=== PATIENT | male | born 1990 | race Caucasian/White ===

== ENCOUNTER 2023-08-17 14:53 | Outpatient (AMB) | payer OTHER, SELFPAY ==
--- NOTE | 2023-08-17 14:56 | A.OFFPC_ITS ---
Vital Signs 08/17/23 15:04 Height 6 ft 4 in Weight 329 lb BMI 40.0 BP 120/66 Blood Pressure Location Rt brachial Position Sitting Respiration 12 Pulse 86 Pulse Source Pulse Oximeter Pulse Oximetry (%) 99 Oxygen Delivery Method Room Air Intake Visit Reasons: New patient-req physical Intake Note: Patient is here to establish care. Patient is accompanied by his sister, Tiff, who is his health care proxy. Tiff lives in the [facility] and she is requesting a physical for todays appointment. Patient reports he becomes anxious when overthinking. Paleologist Required: No Accompanied by: Sister Allergies No Known Allergies Allergy (Verified 08/17/23 15:11) Tobacco use date assessed: 08/17/23 Dental Screening Dental Screen Date: 08/17/23 Did you have a dental visit in the last 12 months?: Yes Did you have a dental problem in the last 6 months where you did not have access to dental care?: No Was dental information given to patient?: Patient has dentist HPI New patient-req physical HPI Details New patient Prior PCP:? [facility] Last office visit/CPE: 2020 Acute issue(s): CPE PMHx: Autism spectrum SurgHx: [place] teeth FHx: Mom: Early onset dementia, ALZ, Hyperparathyroidism. Dad unknown. SocHx: [facility]. Nonsmoker. EtOH none. No drugs. PFSH Medical History (Updated 08/17/23 @ 15:55 by Christiano Collins) Hand dermatitis Autism Surgical History (Updated 08/17/23 @ 15:22 by Maria Esther Lewis CMA) No pertinent past surgical history Family History (Updated 08/17/23 @ 15:22 by Maria Esther Lewis CMA) Mother Dementia Idiopathic parathyroidism Social History (Updated 08/17/23 @ 15:14 by Maria Esther Lewis CMA) Household Members: None Housing: Condominium Are you a primary special needs caregiver to a significant other at home: No Do you presently have visiting nurse or other home services: No 75 years or older and lives alone: No Alcohol intake: never Patient Tobacco Use Status: Never used Tobacco e-Cigarette/Vaping Use: Never Used service: No Current occupational status: employed Current occupation: [employer] Current occupational exposures/hazards: No Cognitive needs: No Hearing needs: No Vision needs: Yes (wears glasses) Questionnaire PHQ-9 Over the last 2 weeks, how often have you been bothered by any of the following problems? 1. Little interest or pleasure in doing things: not at all 2. Feeling down, depressed, or hopeless: not at all 3. Trouble falling or staying asleep, or sleeping too much: not at all 4. Feeling tired or having little energy: not at all 5. Poor appetite or overeating: not at all 6. Feeling bad about yourself - or that you are a failure or have let yourself or your family down: not at all 7. Trouble concentrating on things, such as reading the newspaper or watching television: not at all 8. Moving or speaking so slowly that other people could have noticed. Or the opposite - being so fidgety or restless that you have been moving around a lot more than usual: not at all 9. Thoughts that you would be better off or of hurting yourself in some way: not at all Total score: 0 Depression Screening Interpretation: Negative Depression Screening Done: Yes 47368 - PHQ-9 Billing: Yes Source: Developed by Drs. Bereket Pena, Swathi Gaitan, Jace Chaudhari and colleagues, with an educational noris from [employer]. Thrive Questionnaire Date Thrive assessed: 08/17/23 I am a: Patient What is your living situation today?: I have a steady place to live Within the past 12 months, did the food you bought not last and you didn't have the money to get more?: Never true Within the past 12 months, did you worry whether your food would run out before you got money to buy more?: Never true Do you have trouble paying for medicines?: No Do you have trouble getting transportation to medical appointments?: No Do you have trouble paying your heating and electricity bill?: No Do you have trouble taking care of your child, family member or friend?: No Do you have trouble with day-to-day activities such as bathing, preparing meals, shopping, managing finances, etc.?: No Are you currently unemployed and looking for a job?: No Are you interested in more education?: No Please select the resources that you would like help with: None Currently or been in a relationship where the following occur: no concerns reported THRIVE Score: 0 AUDIT C Alcohol Use Questionnaire (AUDIT-C) 1. How often do you have a drink containing alcohol?: Never 3. How often do you have six or more drinks on one occasion?: Never Total Score: 0 MEAGHAN-7 AMB Questionnaire MEAGHAN-7 Date MEAGHAN - 7 assessed: 08/17/23 Feeling nervous, anxious, or on edge: 1 = Several days Not being able to stop or control worryin = Not at all Worrying too much about different things: 0 = Not at all Trouble relaxin = Not at all Being so restless that it is hard to sit still: 0 = Not at all Becoming easily annoyed or irritable: 0 = Not at all Feeling afraid as if something awful might happen: 1 = Several days Total MEAGHAN-7 score (0-4 normal; 5-9 mild; 10-14 moderate; 15-21 severe): 2 Source: Developed by Drs. Bereket Pena, Swathi Gaitan, Jace Chaudhari and colleagues, with an educational noris from [employer]. MEAGHAN-7 Assessment Billing MEAGHAN-7 Assessment Tool: MEAGHAN-7 Assessment 64322 Review of Systems Const Denies chills, Denies fatigue, Denies fever(s), Denies headache(s) and Denies weakness Eyes Denies change in vision ENT Denies dizziness, Denies headache(s), Denies hearing loss, Denies nasal congestion, Denies sinus pain, Denies sinus pressure and Denies sore throat Card Denies chest pain, Denies lightheadedness, Denies dyspnea and Denies other (palpitations) Resp Denies cough, Denies dyspnea and Denies wheezing GI Denies abdominal pain, Denies melena, Denies hematochezia, Denies change in bowel habits, Denies dyspepsia and Denies nausea Denies hematuria and Denies dysuria Musc Denies abnormal gait, Denies myalgias, Denies arthralgias, Denies numbness and Denies tingling Skin/Breast Denies rash, Denies unusual bruising and Denies wounds Neuro Denies abnormal gait, Denies dizziness, Denies headache(s), Denies memory loss, Denies numbness, Denies Sensory deficit (Neuro), Denies tingling and Denies weakness Psych Denies anxiety, Denies depression and Denies memory loss Endo Denies cold intolerance, Denies fatigue, Denies heat intolerance, Denies polydipsia and Denies polyuria Florentin/Lymph Denies easy bleeding and Denies easy bruising Aller/Immun Denies wheezing Physical exam (Primary Care) Vital Signs: Last Vital Signs Pulse 86 08/17/23 15:04 Resp 12 08/17/23 15:04 BP 120/66 08/17/23 15:04 Pulse Ox 99 08/17/23 15:04 Oxygen Delivery Method Room Air 08/17/23 15:04 BMI result Body Mass Index 40.0 Tobacco/Smoking Status: Tobacco use Status Tobacco use date assessed 08/17/23 08/17/23 15:15 Patient Tobacco Use Status Never used Tobacco 08/17/23 15:15 e-Cigarette/Vaping Use Never Used 08/17/23 15:15 PHQ-9: PHQ-9 Score PHQ-9: Total score 0 08/17/23 15:44 Depression Screening Interpretation: Negative Thrive Assessment: Date of Thrive Assessment Date Thrive assessed 08/17/23 08/17/23 15:17 Currently or been in a relationship where the following occur: no concerns reported Const General: no acute distress, well developed, alert and awake Nutritional Appearance: well nourished Orientation/consciousness: patient oriented x3 HENMT Head: Yes normocephalic and Yes atraumatic Ears: hearing grossly normal bilaterally and TM's normal bilaterally General nose exam: Normal external nose present and Normal nares present Mouth: Normal oral and palatal mucosa present and moist mucous membranes Teeth and gingiva: dentition normal Throat: Yes posterior oropharynx normal Eyes General: appearance normal, both eyes and all related structures Pupils: Equal, round and reactive pupils present and Pupil accommodation reflex normal EOM: EOMs intact bilaterally Neck Neck: Yes normal visual inspection, Yes no lymphadenopathy and Yes trachea midline Thyroid: Thyroid normal Carotids: no bruits Lymphatic: no lymphadenopathy noted Chest Chest palpation & inspection: normal inspection of the chest Resp Effort & Inspection: normal respiratory effort Auscultation: clear to auscultation bilaterally Cardio Rate: regular rate Rhythm: regular rhythm Heart sounds: S1 normal heart sound present, S2 normal heart sound present, no gallops, no murmurs and no rubs Bruits: no abdominal aortic bruits and no carotid bruits GI Palpation (GI): No Abdominal aortic bruit present, Soft to palpation, nontender, No hepatosplenomegaly present and No Rebound tenderness present Auscultation: normal bowel sounds General: Yes no CVA tenderness Back/Spine/Pelvis Back: no CVA tenderness Cervical Spine: cervical ROM normal and No Cervical spine tenderness Thoracic/Lumbar Spine: thoraco-lumbar ROM normal, No pain with thoraco-lumbar ROM, No thoracic spinal tenderness and No lumbar spinal tenderness Skin Lesions: no lesions Rashes: no rashes Trauma: no lacerations or abrasions Wounds: no wounds Nails: normal Neuro General: patient oriented x3 Cranial nerves: Yes Equal, round and reactive pupils present Cognition (Neuro): normal cognition Gait exam (Neuro): Normal gait present Motor exam (neuro): 5/5 motor strength present throughout Sensory Exam: No Sensory deficit (Neuro) Deep tendon reflexes (DTR's): Right patellar reflex intensity grade: 2+ and Left patellar reflex intensity grade: 2+ Extrem General: Yes normal to inspection and No edema Psych Appearance: grossly normal Affect: normal affect Attitude: cooperative Thought process: Normal thought process present Assessment and Plan Assessment & Plan (1) Autism: Code(s): F84.0 - Autistic disorder Plan: Stable (2) Adult general medical exam: Code(s): Z00.00 - Encounter for general adult medical examination without abnormal findings Plan: 33-year-old?male?presents?as?new?patient?for?an?extended?exam. Autism?spectrum?and?obesity?but?otherwise?normal?exam. Check?labs?and?we?will?follow-up?on?these?by?telemedicine?in?a?few?weeks. Orders: Orders Lipid Panel Today Z00.00 - Encounter for general adult medical examination without abnormal findings Microalbumin, Random (w Creat) Today I10 - Essential (primary) hypertension CT NG by PCR Today Z11.3 - Encounter for screening for infections with a predominantly sexual mode of transmission Syphilis Screen Today Z11.3 - Encounter for screening for infections with a predominantly sexual mode of transmission Comprehensive [place]. Panel Fast Today Z00.00 - Encounter for general adult medical examination without abnormal findings Complete Blood Count Auto Diff Today Z00.00 - Encounter for general adult medical examination without abnormal findings TSH reflex Free T4 Today Z00.00 - Encounter for general adult medical examination without abnormal findings UA and rflx microscopic Today Z00.00 - Encounter for general adult medical examination without abnormal findings Vitamin B12 and Folate Today E53.8 - Deficiency of other specified B group vitamins Vitamin D 25-OH Total Today E55.9 - Vitamin D deficiency, unspecified HIV Ab/Ag Today Z11.3 - Encounter for screening for infections with a predo minantly sexual mode of transmission Hepatitis B,C Profile Today Z11.3 - Encounter for screening for infections with a predominantly sexual mode of transmission Coding Level of Care Code New Pt Level 4 (65522) Diagnoses Autism F84.0 Adult general medical exam Z00.00 Additional Codes MEAGHAN-7 Assessment Billing - MEAGHAN-7 Assessment Tool: MEAGHAN-7 Assessment 73715 ([id number])
[2023-08-17 15:04] VITALS: BP 120/66; PULSE 86; RESP 12; O2SAT 99; BMI 40.0
== END 2023-08-17 16:09 | disposition home or self-care (01) ==
PROVIDERS: PCP Family Medicine; Visit Provider Family Medicine
DX: Z00.00 Encounter for general adult medical examination without abnormal findings (principal); F84.0 Autistic disorder
CPT/HCPCS: 99385

== ENCOUNTER 2023-08-21 09:03 | Outpatient (REF) | payer OTHER, SELFPAY ==
[2023-08-21 10:19] LABS: Appearance Urine Clear; Color Urine Yellow; Glucose Urine UA Negative (Negative); Leukocyte Esterase Urine Negative (Negative); Nitrite Urine Negative (Negative); PH 7.5 (5.0-9.0); Specific Gravity - Urine <= 1.005 (1.005-1.025); Urine Blood Negative (Negative); Urine Ketones Negative (Negative); Urine Protein Negative (Neg-Trace)
[2023-08-21 10:28] LABS: MANUAL DIFF FLAG NO
[2023-08-21 10:35] LABS: Basophils Percent Auto 0.7 % (0-2); Eosinophils Absolute Auto 0.1 X10*3/uL (0.0-0.4); Eosinophils Percent Auto 2.6 % (0-4); Hematocrit 44.6 % (42.0-52.0); Hemoglobin 15.1 g/dl (14.0-18.0); Imm Gran Abs Auto 0.08 X10*3/uL (0.00-0.03); Imm Gran Pct Auto 1.5 % (0.0-0.4); Lymphocytes Absolute Auto 1.7 X10*3/uL (1.2-4.9); Lymphocytes Percent Auto 31.3 % (20-40); Mean Corpuscular HGB Conc 33.9 g/dl (31.0-36.0); Mean Corpuscular Hemoglobin 29.8 pg (27.0-33.0); Mean Corpuscular Volume 88.1 fL (80.0-98.0); Mean Platelet Volume 11.8 fL (9.4-12.4); Monocytes Absolute Auto 0.4 X10*3/uL (0.1-1.2); Monocytes Percent Auto 7.5 % (2-11); Neutrophils Absolute Auto 3.1 x10*3/uL (2.0-8.3); Neutrophils Percent Auto 56.4 % (45-73); Platelet Count 182 X10*3/uL (160-400); Red Blood Count 5.06 X10*6/uL (4.60-5.80); White Blood Count 5.4 X10*3/uL (4.8-10.8)
[2023-08-21 11:07] LABS: Creatinine Urine 21.76 mg/dL; Microalbumin Urine < 5.0 mg/L
[2023-08-21 11:10] LABS: Alanine Aminotransferase 62 U/L (0-40); Albumin Level 4.4 g/dL (3.5-5.0); Alkaline Phosphatase 60 U/L (39-117); Anion Gap 10 (12-20); Aspartate Amino Transferase 44 U/L (5-37); Bilirubin Total 2.1 mg/dL (0.0-1.0); Blood Urea Nitrogen 11 mg/dL (9-16); Calcium 9.4 mg/dL (8.4-10.2); Carbon Dioxide 28 mmol/L (22-29); Chloride 103 mmol/L (96-108); Cholesterol 174 mg/dL (<200); Estimated Glomerular Filt Rate > 60; Glucose Fasting 87 mg/dL (60-99); HDL Cholesterol 30 mg/dL (>40); LDL Cholesterol Calculated 87 mg/dL (<100); Sodium 137 mmol/L (135-145); Total Protein 7.1 g/dL (6.5-8.0); Triglycerides 286 mg/dL (<150)
[2023-08-21 11:11] LABS: TSH reflex Free T4 1.28 uIU/mL (0.32-4.0); Vitamin D 25-OH Total 23.1 ng/mL (>30)
[2023-08-21 11:27] LABS: HBS Num1 2.51 mIU/mL (0-7.99); HBc Num1 0.07 S/CO (0.00-0.79); HBsAGNum1 0.39 S/CO (0.00-0.99); HIV AB/AG Nonreactive (Nonreactive); HIV Num 1 0.06 S/CO (0.00-0.99); Hepatitis B Core Antibody Nonreactive (Nonreactive); Hepatitis B Surface Antigen Negative (Negative); ~HepC Num1 0.15 S/CO (0.00-0.79); ~Hepatitis B Surface Antibody NONREACTIVE (Nonreactive); ~Hepatitis C Antibody Nonreactive (Nonreactive)
[2023-08-21 11:29] LABS: Syphilis Screen Nonreactive (Nonreactive)
[2023-08-21 11:41] LABS: Folate 6.8 ng/mL (> or = 4.0); Vitamin B12 351 pg/mL (200-900)
== END 2023-08-21 09:04 | disposition home or self-care (01) ==
LOC: HO.HMGCLDS 09:03
PROVIDERS: PCP Family Medicine; Visit Provider Family Medicine
DX: Z00.00 Encounter for general adult medical examination without abnormal findings (principal); Z11.3 Encounter for screening for infections with a predominantly sexual mode of transmission; Z11.4 Encounter for screening for human immunodeficiency virus [HIV]; I10 Essential (primary) hypertension; E53.8 Deficiency of other specified B group vitamins; E55.9 Vitamin D deficiency, unspecified
CPT/HCPCS: 36415; 80053; 80061; 81003; 82043; 82306; 82570; 82607; 82746; 84443; 85025; 86704; 86706; 86780; 86803; 87340; 87389

== ENCOUNTER → 2023-10-30 14:38 | Outpatient (AMB) | payer OTHER, SELFPAY ==
--- NOTE | 2023-10-30 14:27 | A.OFFPC_ITS ---
Intake Visit Reasons: f/u labs Intake Note: Patient is scheduled for follow up on labs today. I spoke with patient's sister, Tiff, who is on release of information form for patient, as he is autistic. Allergies No Known Allergies Allergy (Verified 10/30/23 14:28) Tobacco use date assessed: 10/30/23 Dental Screening Dental Screen Date: 08/17/23 Did you have a dental visit in the last 12 months?: Yes Did you have a dental problem in the last 6 months where you did not have access to dental care?: No Was dental information given to patient?: Patient has dentist HPI f/u labs HPI Details 33 y/o male presents to f/u labs via tel emedicine. Labs were drawn 08/21/23. Reviewed labs with pt. Triglycerides 286. TC 174. LDL 87. HDL low at 30. Vitamin D low at 23.1. Elevated liver enzymes - AST 44 / ALT 62. HPI Comments History of Present Illness Details Documentation assistance for Shai Recinos MD, was provided by Christiano Collins,? Complex Care Nurse Practitioner on 10/30/2023 at 3:06 PM EST. I, Dr. Recinos, have read, observed, and verified documentation. [facility] Medical History (Updated 10/30/23 @ 15:05 by Christiano Collins) Hand dermatitis Autism Surgical History (Updated 08/17/23 @ 15:22 by Maria Esther Lewis CMA) No pertinent past surgical history Family History (Updated 08/17/23 @ 15:22 by Maria Esther Lewis CMA) Mother Dementia Idiopathic parathyroidism Social History (Updated 08/17/23 @ 15:14 by Maria Esther Lewis CMA) Household Members: None Housing: Condominium Are you a primary palliative care physician to a significant other at home: No Do you presently have visiting nurse or other home services: No 75 years or older and lives alone: No Alcohol intake: never Patient Tobacco Use Status: Never used Tobacco e-Cigarette/Vaping Use: Never Used service: No Current occupational status: employed Current occupation: [employer] Current occupational exposures/hazards: No Cognitive needs: No Hearing needs: No Vision needs: Yes (wears glasses) Questionnaire Thrive Questionnaire Date Thrive assessed: 08/17/23 MEAGHAN-7 AMB Questionnaire MEAGHAN-7 Date MEAGHAN - 7 assessed: 08/17/23 Source: Developed by Drs. Bereket Pena, Swathi Gaitan, Jace Chaudhari and colleagues, with an educational noris from [employer]. Review of Systems Const Denies chills, Denies fatigue, Denies fever(s), Denies headache(s) and Denies weakness ENT Denies dizziness and Denies headache(s) Card Denies dyspnea Resp Denies cough, Denies dyspnea, Denies wheezing and Denies other (shortness of breath) Musc Denies numbness and Denies tingling Neuro Denies dizziness, Denies headache(s), Denies numbness, Denies tingling and Denies weakness Psych Denies anxiety and Denies depression Endo Denies fatigue Aller/Immun Denies wheezing Physical exam (Primary Care) Tobacco/Smoking Status: Tobacco use Status Tobacco use date assessed 10/30/23 10/30/23 14:30 Patient Tobacco Use Status Never used Tobacco 10/30/23 14:30 e-Cigarette/Vaping Use Never Used 10/30/23 14:30 Thrive Assessment: Date of Thrive Assessment Date Thrive assessed 08/17/23 10/30/23 14:30 Telehealth Telehealth Telehealth Platform: Telephone Location of provider rendering services: practice address Location of patient: address on file Patient Identification confirmed using: Name, : Yes Telehealth method: voice only Patient verbally consented to treatment: Yes Patient verbally consented to billing insurance company: Yes Patient informed of any privacy concerns related to visit: Yes Minutes spent on Phone/Video with Pt.: 14 Assessment and Plan Assessment & Plan (1) Elevated liver enzymes: Code(s): R74.8 - Abnormal levels of other serum enzymes Plan: Mildly?elevated?liver?enzymes?and?patient?is?obese.??Likely?fatty?liver?disorder . Encouraged?weight?loss?and?good?hydration Will?recheck?in?a?couple?of?months.??If?still?the ?same?or?higher,?will?check?an?ultrasound Also?mildly?elevated?bilirubin?level.??If?this?rises?would?check?liver?ultrasoun d?as?well (2) Hypertriglyceridemia: Code(s): E78.1 - Pure hyperglyceridemia Plan: Encouraged?weight?loss?and?diet?low?in?saturated?fats?and?cholesterol (3) Low vitamin D level: Code(s): R79.89 - Other specified abnormal findings of blood chemistry Plan: His?sister?will?get?him?a?vitamin-D?supplement We?can?recheck?this?at?his?next?visit Orders: Orders Vitamin D 25-OH Total Today E55.9 - Vitamin D deficiency, unspecified Lipid Panel Today E78.1 - Pure hyperglyceridemia, Z00.00 - Encounter for general adult medical examination without abnormal findings Comprehensive [place]. Panel Fast Today R74.8 - Abnormal levels of other serum enzymes, Z00.00 - Encounter for general adult medical examination without abnormal findings Coding Level of Care Code Tele Est Pt Level 2 (88190) Diagnoses Elevated liver enzymes R74.8 Hypertriglyceridemia E78.1 Low vitamin D level R79.89
== END ==
PROVIDERS: PCP Family Medicine; Visit Provider Family Medicine
DX: R74.8 Abnormal levels of other serum enzymes (principal); E78.1 Pure hyperglyceridemia; R79.89 Other specified abnormal findings of blood chemistry
CPT/HCPCS: 99212

== ENCOUNTER 2023-12-21 12:46 | Outpatient (AMB) | payer OTHER, SELFPAY ==
[2023-12-21 12:50] VITALS: BP 130/72; PULSE 74; TEMP 36.7; O2SAT 98; BMI 40.0
--- NOTE | 2023-12-21 12:50 | AM.OFFWIN_ITS ---
Intake Vital Signs 12/21/23 12:50 Height 6 ft 4 in Weight 329 lb BMI 40.0 BP 130/72 Blood Pressure Location Lt brachial Position Sitting Pulse 74 Pulse Source Pulse Oximeter Temp 98.0 F Temp Source Temporal Artery Scan Pulse Oximetry (%) 98 Oxygen Delivery Method Room Air Intake Visit Reasons: EP lower abdomen pain down rt leg 1 wk Intake Note: pt is here for lower abd pain down right leg for 1 week Patient Tobacco Use Status: Never used Tobacco Allergies No Known Allergies Allergy (Verified 12/21/23 12:51) Do you need a note to return to daycare/school/sports/work: Yes HPI EP lower abdomen pain down rt leg 1 wk HPI Details This note is constructed using voice recognition software. While every effort has been made to ensure accuracy, order processing clerk errors may have been included. The patient is a 33 year old mentally challenged male who presents with his sister who is both his parachutist/combatant diver qualified and his healthcare proxy to the clinic today with 1 week history of right testicle pain intermittent in nature after twisting his testicle in his hands. He notes he was a bit more aggressive in his twisting and squeezing motion when he developed discomfort . He notes the area only hurts when he touches it, and improves if he takes a shower or rests and leaves the area alone. He notes when the area feels more tender he develops mild nausea feelings and pain into his abdomen. He describes the pain to be more tender in nature. He denies being sexually active ever. No discharge from the penis. No lesions. He has had no changes in bowel or bladder function. [facility] Medical History (Updated 10/30/23 @ 15:05 by Christiano Collins) Hand dermatitis Autism Surgical History (Updated 08/17/23 @ 15:22 by Maria Esther Lewis CMA) No pertinent past surgical history Family History (Updated 08/17/23 @ 15:22 by Maria Esther Lewis CMA) Mother Dementia Idiopathic parathyroidism Social History (Updated 08/17/23 @ 15:14 by Maria Esther Lewis CMA) Household Members: None Housing: Condominium Are you a primary home care rn to a significant other at home: No Do you presently have visiting nurse or other home services: No 75 years or older and lives alone: No Alcohol intake: never Patient Tobacco Use Status: Never used Tobacco e-Cigarette/Vaping Use: Never Used service: No Current occupational status: employed Current occupation: [employer] Current occupational exposures/hazards: No Cognitive needs: No Hearing needs: No Vision needs: Yes (wears glasses) Review of Systems Const All systems reviewed & are unremarkable except as noted in HPI and below Physical Exam Vital Signs: Last Vital Signs Temp 98.0 F 12/21/23 12:50 Pulse 74 12/21/23 12:50 BP 130/72 12/21/23 12:50 Pulse Ox 98 12/21/23 12:50 Oxygen Delivery Method Room Air 12/21/23 12:50 BMI result Body Mass Index 40.0 Const General: cooperative, healthy appearing, comfortable, no acute distress and alert Orientation/consciousness: patient oriented x3 Limitations: no limitations GI Inspection: Yes normal to inspection Palpation (GI): Soft to palpation and nontender Percussion: Yes normal to percussion Auscultation: normal bowel sounds General: Yes no CVA tenderness Male General Exam: Yes normal external exam, No ecchymosis, No edema, No erythema, No hernia, No inguinal lymphadenopathy, No lacerations and No Genital lesions present Penis: normal penis and No Genital lesions present Meatus: meatus normal Scrotum: scrotum normal (Normal cremasteric reflex), testes descended bilaterally, no hydroceles, no masses and no scrotal swelling Back/Spine/Pelvis Back: no CVA tenderness Skin General skin exam: no rashes or lesions noted, elasticity normal and turgor normal Neuro General: patient oriented x3 Psych Appearance: grossly normal Mental Status: mental status grossly normal Speech and movement: Normal speech and movement present Affect: normal affect Assessment & Plan Assessment & Plan (1) Scrotum pain: Code(s): N50.82 - Scrotal pain Plan: Secondary to self manipulation. Given intermittent low-level nature of this pain, discussed and deferred ultrasound. Advised use of NSAIDs, ice, and avoidance of the area. May return to previous activity once area has resolved. Advised ER with sudden acute worsening of pain. Plan See above for full details and plan. Coding Level of Care Code Est Pt Level 3 (24400) Diagnoses Scrotum pain N50.82
== END 2023-12-21 14:24 | disposition home or self-care (01) ==
PROVIDERS: PCP Family Medicine; Visit Provider Registered Nurse
DX: N50.82 Scrotal pain (principal)
CPT/HCPCS: 99213

== ENCOUNTER 2024-01-28 11:30 | Outpatient (AMB) | payer OTHER, SELFPAY ==
--- NOTE | 2024-01-28 11:33 | MHC.PC.OV ---
Vital Signs 01/28/24 11:37 Height 6 ft 4 in Weight 324 lb 2 oz BMI 39.4 BP 118/74 Blood Pressure Location Rt brachial Position Sitting Respiration 15 Pulse 80 Pulse Source Pulse Oximeter Temp 99.8 F Temp Source Oral Pulse Oximetry (%) 96 Oxygen Delivery Method Room Air Intake Visit Reasons: persistent fever Intake Note: patient has had a fever over 5 days and coughing. patient tested negative for covid last thursday. Allergies No Known Allergies Allergy (Verified 01/28/24 11:36) Tobacco use date assessed: 10/30/23 Dental Screening Dental Screen Date: 08/17/23 HPI HPI Comments History of Present Illness Details This is a 33 year old male with a pmhx of autism, elevated LFTs and hypertriglyceridemia presenting for a sick visit. He is accompanied by his sister, Lopez. They were visiting relatives in [place]. They were round sick toddlers. Upon returning he developed symptoms 5 days ago. Endorses fevers. Temp max 101 2 days ago. Temp is 99.8 degrees today on DayQuil. He is coughing up yellow/green mucus. He has sinus pressure with postnasal drip. Feels fatigued. Appetite is little decreased. He is drinking fluids. Taking NyQuil , but it is not much help with the cough. Endorses mild sore throat. Tested negative for COVID-19 at home twice on Thursday. No history of respiratory disease aside from childhood asthma. ROS: Constitutional: No shaking chills or night sweats. See HPI. Eyes: No eye pain, eye redness, eye discharge. ENT: No hearing loss or ear pain, see HPI Respiratory: No shortness of breath, hemoptysis or wheezing.. Cardiovascular: No chest pain Gastrointestinal: No anorexia, nausea, vomiting or diarrhea. No abdominal pain Neurologic: No headache, dizziness, syncope Musculoskeletal: No body aches Skin: No rash Physical exam: Constitutional: Alert, in no distress. Head: Normocephalic. Eyes: No erythema or discharge. Ear, Nose and Throat: Canals mostly occluded by brown wax. Visualized portions of TMs reagan without bulging or erythema.. Erythematous nasal mucosa. No discharge. Sinuses nontender. Tonsils and throat mildly erythematous. No exudates. No swelling. Neck: Supple, Full range of motion. No lymphadenopathy. Respiratory: Clear to auscultation. Coughs frequently during exam. Cardiovascular: S1 S2 regular. No murmurs. Extremities: Warm and well perfused. No clubbing, cyanosis or edema [facility] Medical History (Updated 10/30/23 @ 15:05 by Christiano Collins) Hand dermatitis Autism Surgical History (Updated 08/17/23 @ 15:22 by Maria Esther Lewis CMA) No pertinent past surgical history Family History (Updated 08/17/23 @ 15:22 by aMria Esther Lewis CMA) Mother Dementia Idiopathic parathyroidism Social History (Updated 08/17/23 @ 15:14 by Maria Esther Lewis CMA) Household Members: None Housing: Condominium Are you a primary director of critical care to a significant other at home: No Do you presently have visiting nurse or other home services: No Alcohol intake: never Patient Tobacco Use Status: Never used Tobacco e-Cigarette/Vaping Use: Never Used service: No Current occupational status: employed Current occupation: [employer] Current occupational exposures/hazards: No Cognitive needs: No Hearing needs: No Vision needs: Yes (wears glasses) Questionnaire Thrive Questionnaire Date Thrive assessed: 08/17/23 MEAGHAN-7 AMB Questionnaire MEAGHAN-7 Date MEAGHAN - 7 assessed: 08/17/23 Source: Developed by Drs. Bereket Pena, Swathi Gaitan, Jace Chaudhari and colleagues, with an educational noris from [employer]. Physical exam (Primary Care) Vital Signs: Last Vital Signs Temp 99.8 F 01/28/24 11:37 Pulse 80 01/28/24 11:37 Resp 15 01/28/24 11:37 BP 118/74 01/28/24 11:37 Pulse Ox 96 01/28/24 11:37 Oxygen Delivery Method Room Air 01/28/24 11:37 BMI result Body Mass Index 39.4 Tobacco/Smoking Status: Tobacco use Status Tobacco use date assessed 10/30/23 01/28/24 11:35 Patient Tobacco Use Status Never used Tobacco 01/28/24 11:35 e-Cigarette/Vaping Use Never Used 01/28/24 11:35 Thrive Assessment: Date of Thrive Assessment Date Thrive assessed 08/17/23 01/28/24 11:35 Results AMB Rapid Strep AMB Rapid Strep Negative Last Edit by Maria Esther Lewis CMA on 01/28/24 12:22 Results Reviewed Results Reviewed: Laboratory Last Values Strep Scn Rapid Clinic Negative 01/28/24 12:12 Assessment and Plan Assessment & Plan (1) Cough: Code(s): R05.9 - Cough, unspecified Qualifiers: Cough type: acute Qualified Code(s): R05.1 - Acute cough (2) Fever: Code(s): R50.9 - Fever, unspecified Qualifiers: Fever type: due to other condition Qualified Code(s): R50.81 - Fever presenting with conditions classified elsewhere (3) Sore throat: Code(s): J02.9 - Acute pharyngitis, unspecified Plan Differential includes strep, COVID-19, seasonal flu, RSV or other viral illness, bronchitis, pneumonia. Does not have symptoms of bacterial sinusitis at this time. Rapid strep negative. Throat culture sent to lab. Triple swab ordered. Chest x-ray will be completed today at [facility]. Recommended rest, fluids, cool mist humidifier, Vicks, saline nasal rinse. Prescribed Tessalon Perles 3 times daily as needed for cough. Warning signs warranting ER evaluation reviewed. Orders: Orders AMB Rapid Strep Screen Today Z13.9 - Encounter for screening, unspecified XR chest 2V Today R05.9 - Cough, unspecified SARS-CoV2/FLU/RSV Today R09.89 - Other specified symptoms and signs involving the circulatory and respiratory systems Throat Culture Today J02.9 - Acute pharyngitis, unspecified Medications: New benzonatate 100 mg PO TID PRN 30 caps 0RF cough 10 days Coding Level of Care Code Est Pt Level 4 (51967) Complex EM visit Add On G2211 Diagnoses Acute cough R05.1 Cough type: acute Fever in other diseases R50.81 Fever type: due to other condition Sore throat J02.9
[2024-01-28 11:37] VITALS: BP 118/74; PULSE 80; RESP 15; TEMP 37.7; O2SAT 96; BMI 39.4
== END 2024-01-28 12:21 | disposition home or self-care (01) ==
PROVIDERS: PCP Family Medicine; Visit Provider Physician Assistant Medical
DX: R05.1 Acute cough (principal); R50.81 Fever presenting with conditions classified elsewhere; J02.9 Acute pharyngitis, unspecified; Z13.9 Encounter for screening, unspecified
CPT/HCPCS: 87880; 99214; G2211

== ENCOUNTER 2024-01-28 12:12 | Outpatient (REF) | payer OTHER, SELFPAY ==
--- NOTE | ~2024-01-28 | XR_ITS ---
EXAMINATION: XR CHEST CLINICAL INFORMATION: Cough COMPARISON: None available. TECHNIQUE: 2 views of the chest were obtained. FINDINGS: Lungs are hypoinflated. Heart size normal. Patchy consolidation is seen in the superior segment of the right lower lobe. The left lung is clear. There are no pleural effusions. XR/XR chest 2V IMPRESSION: Right lower lobe pneumonia. Electronically signed by: Dean Cervantes MD 01/28/2024 02:42 PM EDT
[2024-01-28 15:06] LABS: Influenza A PCR NEGATIVE (Negative); Influenza B PCR NEGATIVE (Negative); Resp Syncy Virus RNA Qual PCR NEGATIVE (Negative); SARS COV2 PCR INHOUSE NEGATIVE (Negative)
== END 2024-01-28 12:13 | disposition home or self-care (01) ==
LOC: HO.LAB 12:12
PROVIDERS: PCP Family Medicine; Visit Provider Physician Assistant Medical
DX: R05.9 Cough, unspecified (principal); R09.89 Other specified symptoms and signs involving the circulatory and respiratory systems; J02.9 Acute pharyngitis, unspecified
CPT/HCPCS: 0241U; 71046; 87070; 87147

== ENCOUNTER 2024-02-18 13:34 | Outpatient (AMB) | payer OTHER, SELFPAY ==
--- NOTE | 2024-02-18 13:37 | MHC.PC.OV ---
Vital Signs 02/18/24 13:43 Height 6 ft 4 in Weight 330 lb 2 oz BMI 40.2 BP 119/69 Blood Pressure Location Rt brachial Position Sitting Respiration 16 Pulse 73 Pulse Source Pulse Oximeter Temp 97.9 F Temp Source Oral Pulse Oximetry (%) 97 Oxygen Delivery Method Room Air Intake Visit Reasons: follow up Intake Note: patient here for follow up Specifications Checker Required: No Allergies No Known Allergies Allergy (Verified 02/18/24 13:42) Tobacco use date assessed: 02/18/24 Dental Screening Dental Screen Date: 02/18/24 Did you have a dental visit in the last 12 months?: Yes Did you have a dental problem in the last 6 months where you did not have access to dental care?: No Was dental information given to patient?: Patient has dentist HPI HPI Comments History of Present Illness Details This is a 33-year-old male with autism presenting for follow up. He is with his sister, Lopez. Patient was diagnosed with pneumonia on 01/28/2024 after he presented with cough and persistent fever. Chest x-ray showed right lower lobe patchy infiltrates and hypoinflation of lungs. Patient was treated with a course of amoxicillin and azithromycin. Fever resolved on day 2 of antibiotics. No recurrent fevers. Cough is 95% improved. Still coughs occasionally in the morning with some mucus. No shortness a breath, chest pain, dizziness. No pre-existing lung disease. ROS: Constitutional: No fevers or chills ENT: No hearing loss, sneezing, congestion, runny nose or sore throat. Respiratory: No shortness of breath or hemoptysis Cardiovascular: No chest pain Skin: No rash Physical exam: Constitutional: Alert, in no distress. Head: Normocephalic. Eyes: Pupils are equal, round and reactive to light. Extraocular muscles intact. Ear, Nose and Throat: Canals occluded by brown wax. Normal nasal mucosa. No nasal discharge. No oral lesions. Respiratory: Clear to auscultation. Cardiovascular: S1 S2 regular. No murmurs. Extremities: Warm and well perfused. No clubbing, cyanosis or edema. [facility] Medical History (Updated 02/18/24 @ 14:02 by ANTHONY Green) Right lower lobe pneumonia Hand dermatitis Autism Surgical History (Updated 08/17/23 @ 15:22 by Maria Esther Lewis CMA) No pertinent past surgical history Family History (Updated 08/17/23 @ 15:22 by Maria Esther Lewis CMA) Mother Dementia Idiopathic parathyroidism Social History (Updated 08/17/23 @ 15:14 by Maria Esther Lewis CMA) Household Members: None Housing: Condominium Are you a primary veterinarian laboratory animal care to a significant other at home: No Do you presently have visiting nurse or other home services: No 75 years or older and lives alone: No Alcohol intake: never Patient Tobacco Use Status: Never used Tobacco e-Cigarette/Vaping Use: Never Used service: No Current occupational status: employed Current occupation: [employer] Current occupational exposures/hazards: No Cognitive needs: No Hearing needs: No Vision needs: Yes (wears glasses) Questionnaire Thrive Questionnaire Date Thrive assessed: 08/17/23 MEAGHAN-7 AMB Questionnaire MEAGHAN-7 Date MEAGHAN - 7 assessed: 08/17/23 Source: Developed by Drs. Bereket Pena, Swathi Gaitan, Jace Chaudhari and colleagues, with an educational noris from [employer]. Physical exam (Primary Care) Vital Signs: Last Vital Signs Temp 97.9 F 02/18/24 13:43 Pulse 73 02/18/24 13:43 Resp 16 02/18/24 13:43 BP 119/69 02/18/24 13:43 Pulse Ox 97 02/18/24 13:43 Oxygen Delivery Method Room Air 02/18/24 13:43 BMI result Body Mass Index 40.2 Tobacco/Smoking Status: Tobacco use Status Tobacco use date assessed 02/18/24 02/18/24 13:44 Patient Tobacco Use Status Never used Tobacco 02/18/24 13:38 e-Cigarette/Vaping Use Never Used 02/18/24 13:38 Thrive Assessment: Date of Thrive Assessment Date Thrive assessed 08/17/23 02/18/24 13:38 Assessment and Plan Assessment & Plan (1) Right lower lobe pneumonia: Comment: 01/28/2024 Code(s): J18.9 - Pneumonia, unspecified organism Qualifiers: Pneumonia type: due to unspecified organism Qualified Code(s): J18.9 - Pneumonia, unspecified organism Plan: Patient is doing well since taking antibiotics which he did complete. Recommended Mucinex for residual cough and congestion. Monitor for worsening symptoms. Warning signs warranting follow up reviewed. He will have chest x-ray completed in several weeks to ensure resolution of infiltrates. They will contact the office if they have any questions or concerns. Coding Level of Care Code Est Pt Level 3 (19653) Diagnoses Pneumonia of right lower lobe due to infectious organism J18.9 Pneumonia type: due to unspecified organism
[2024-02-18 13:43] VITALS: BP 119/69; PULSE 73; RESP 16; TEMP 36.6; O2SAT 97; BMI 40.2
== END 2024-02-18 14:14 | disposition home or self-care (01) ==
PROVIDERS: PCP Family Medicine; Visit Provider Physician Assistant Medical
DX: J18.9 Pneumonia, unspecified organism (principal)

== ENCOUNTER → 2024-02-18 13:34 | Outpatient (BNVA) | payer OTHER, SELFPAY | PROVIDERS: PCP Family Medicine; Visit Provider Physician Assistant Medical | DX: J18.9 Pneumonia, unspecified organism (principal) | CPT/HCPCS: 99212 ==

== ENCOUNTER 2024-03-11 11:44 | Outpatient (REF) | payer OTHER, SELFPAY ==
--- NOTE | ~2024-03-11 | XR_ITS ---
EXAMINATION: XR CHEST CLINICAL INFORMATION: Pneumonia, unspecified organism COMPARISON: January 28, 2024 TECHNIQUE: 2 views of the chest were obtained. FINDINGS: No consolidation, pleural effusion or pneumothorax. No hyperinflation. Cardiomediastinal silhouette is normal in size. Multilevel thoracic spondylosis. Kyphotic deformity, thoracic spine. XR/XR chest 2V IMPRESSION: Resolved airspace disease. Overall improved. Electronically signed by: Naren May MD 04/04/2024 03:26 PM EST
== END 2024-03-11 11:45 | disposition home or self-care (01) ==
LOC: HO.XRAY 11:44
PROVIDERS: Visit Provider Physician Assistant Medical
DX: J18.9 Pneumonia, unspecified organism (principal)
CPT/HCPCS: 71046

== ENCOUNTER → 2024-03-11 11:50 | Outpatient (BNV) | payer OTHER, SELFPAY | PROVIDERS: Visit Provider Radiology Diagnostic Radiology | DX: J18.9 Pneumonia, unspecified organism (principal) | CPT/HCPCS: 71046 ==

== ENCOUNTER 2024-03-25 09:09 | Outpatient (REF) | payer OTHER, SELFPAY ==
[2024-03-25 10:58] LABS: Alanine Aminotransferase 75 U/L (0-40); Albumin Level 4.6 g/dL (3.5-5.0); Alkaline Phosphatase 55 U/L (39-117); Anion Gap 11 (12-20); Aspartate Amino Transferase 53 U/L (5-37); Bilirubin Total 2.4 mg/dL (0.0-1.0); Blood Urea Nitrogen 10 mg/dL (9-16); Calcium 9.5 mg/dL (8.4-10.2); Carbon Dioxide 28 mmol/L (22-29); Chloride 103 mmol/L (96-108); Cholesterol 175 mg/dL (<200); Estimated Glomerular Filt Rate > 60; Glucose Fasting 87 mg/dL (60-99); HDL Cholesterol 30 mg/dL (>40); LDL Cholesterol Calculated 100 mg/dL (<100); Sodium 138 mmol/L (135-145); Triglycerides 228 mg/dL (<150)
== END 2024-03-25 09:10 | disposition home or self-care (01) ==
LOC: HO.HMGCLDS 09:09
PROVIDERS: PCP Family Medicine; Visit Provider Family Medicine
DX: Z00.00 Encounter for general adult medical examination without abnormal findings (principal); E55.9 Vitamin D deficiency, unspecified; E78.1 Pure hyperglyceridemia; R74.8 Abnormal levels of other serum enzymes
CPT/HCPCS: 36415; 80053; 80061; 82306

== ENCOUNTER 2024-04-04 14:39 | Outpatient (AMB) | payer OTHER, SELFPAY ==
--- NOTE | 2024-04-04 14:57 | A.OFFPC_ITS ---
Vital Signs 04/04/24 14:59 Height 6 ft 4 in Weight 329 lb 4 oz BMI 40.1 BP 103/59 L Blood Pressure Location Rt brachial Position Sitting Respiration 16 Pulse 66 Pulse Source Pulse Oximeter Temp 98.4 F Temp Source Temporal Artery Scan Pulse Oximetry (%) 99 Oxygen Delivery Method Room Air Intake Visit Reasons: fu on enzymes/labs Intake Note: follow up labs cxr isnt read will have to reschedule to go over results Allergies No Known Allergies Allergy (Verified 04/04/24 14:58) Tobacco use date assessed: 02/18/24 Dental Screening Dental Screen Date: 02/18/24 HPI fu on enzymes/labs HPI Details 33 y/o male presents to f/u elevated mikhail er enzymes, elevated triglycerides, and low vitamin D-level. Also had mildly elevated bilirubin level. Labs drawn 03/25/24. Reviewed labs with pt. Ongoing elevated total bilirubin, AST/ALT. AST 53, ALT 75. Triglycerides 228. TC 175. LDL 100. HDL low at 30. Vitamin D low at 29.0. Was diagnosed with pneumonia 01/28/24. He notes symptoms continue to improve. [facility] Medical History (Updated 02/18/24 @ 14:02 by ANTHONY Green) Right lower lobe pneumonia Hand dermatitis Autism Surgical History (Updated 08/17/23 @ 15:22 by Maria Esther Lewis CMA) No pertinent past surgical history Family History (Updated 08/17/23 @ 15:22 by Maria Esther Lewis CMA) Mother Dementia Idiopathic parathyroidism Social History (Updated 08/17/23 @ 15:14 by Maria Esther Lewis CMA) Household Members: None Housing: Condominium Are you a primary technical healthcare consultant to a significant other at home: No Do you presently have visiting nurse or other home services: No 75 years or older and lives alone: No Alcohol intake: never Patient Tobacco Use Status: Never used Tobacco e-Cigarette/Vaping Use: Never Used service: No Current occupational status: employed Current occupation: [employer] Current occupational exposures/hazards: No Cognitive needs: No Hearing needs: No Vision needs: Yes (wears glasses) Questionnaire PHQ-9 Over the last 2 weeks, how often have you been bothered by any of the following problems? 1. Little interest or pleasure in doing things: not at all 2. Feeling down, depressed, or hopeless: not at all 3. Trouble falling or staying asleep, or sleeping too much: not at all 4. Feeling tired or having little energy: not at all 5. Poor appetite or overeating: not at all 6. Feeling bad about yourself - or that you are a failure or have let yourself or your family down: not at all 7. Trouble concentrating on things, such as reading the newspaper or watching television: not at all 8. Moving or speaking so slowly that other people could have noticed. Or the opposite - being so fidgety or restless that you have been moving around a lot more than usual: not at all 9. Thoughts that you would be better off or of hurting yourself in some way: not at all Total score: 0 Source: Developed by Drs. Bereket Pena, Swathi Gaitan, Jace Chaudhari and colleagues, with an educational noris from [employer]. Thrive Questionnaire Date Thrive assessed: 03/28/24 I am a: Patient What is your living situation today?: I have a steady place to live Within the past 12 months, did the food you bought not last and you didn't have the money to get more?: Never true Within the past 12 months, did you worry whether your food would run out before you got money to buy more?: Never true Do you have trouble paying for medicines?: No Do you have trouble getting transportation to medical appointments?: No Do you have trouble paying your heating and electricity bill?: No Do you have trouble taking care of your child, family member or friend?: No Do you have trouble with day-to-day activities such as bathing, preparing meals, shopping, managing finances, etc.?: No Are you currently unemployed and looking for a job?: No Are you interested in more education?: No Please select the resources that you would like help with: None Currently or been in a relationship where the following occur: No concerns reported THRIVE Score: 0 AUDIT C Alcohol Use Questionnaire (AUDIT-C) 1. How often do you have a drink containing alcohol?: Never Total Score: 0 MEAGHAN-7 AMB Questionnaire MEAGHAN-7 Date MEAGHAN - 7 assessed: 08/17/23 Feeling nervous, anxious, or on edge: 0 = Not at all Not being able to stop or control worryin = Not at all Worrying too much about different things: 0 = Not at all Trouble relaxin = Not at all Being so restless that it is hard to sit still: 0 = Not at all Becoming easily annoyed or irritable: 0 = Not at all Feeling afraid as if something awful might happen: 0 = Not at all Total MEAGHAN-7 score (0-4 normal; 5-9 mild; 10-14 moderate; 15-21 severe): 0 Source: Developed by Drs. Bereket Pena, Swathi Gaitan, Jace Chaudhari and colleagues, with an educational noris from [employer]. Review of Systems Const Denies chills, Denies fatigue, Denies fever(s), Denies headache(s) and Denies weakness ENT Denies dizziness and Denies headache(s) Card Denies dyspnea Resp Denies cough, Denies dyspnea, Denies wheezing and Denies other (shortness of breath) Musc Denies numbness and Denies tingling Neuro Denies dizziness, Denies headache(s), Denies numbness, Denies tingling and Denies weakness Psych Denies anxiety and Denies depression Endo Denies fatigue Aller/Immun Denies wheezing Physical exam (Primary Care) Vital Signs: Last Vital Signs Temp 98.4 F 04/04/24 14:59 Pulse 66 04/04/24 14:59 Resp 16 04/04/24 14:59 BP 103/59 L 04/04/24 14:59 Pulse Ox 99 04/04/24 14:59 Oxygen Delivery Method Room Air 04/04/24 14:59 BMI result Body Mass Index 40.1 Tobacco/Smoking Status: Tobacco use Status Tobacco use date assessed 02/18/24 04/04/24 14:59 Patient Tobacco Use Status Never used Tobacco 04/04/24 14:59 e-Cigarette/Vaping Use Never Used 04/04/24 14:59 PHQ-9: PHQ-9 Score PHQ-9: Total score 0 04/04/24 15:08 Thrive Assessment: Date of Thrive Assessment Date Thrive assessed 03/28/24 04/04/24 14:59 Currently or been in a relationship where the following occur: No concerns reported Const General: well developed; No acute distress Nutritional Appearance: well nourished Orientation/consciousness: patient oriented x3 HENMT Head: Yes normocephalic and Yes atraumatic Eyes General: appearance normal, both eyes and all related structures Pupils: Equal, round and reactive pupils present EOM: EOMs intact bilaterally Resp Effort & Inspection: normal respiratory effort Neuro General: patient oriented x3 and gait normal Cranial nerves: Yes Equal, round and reactive pupils present Psych Affect: normal affect Coding Level of Care Code Est Pt Level 3 (95984) Diagnoses Elevated liver enzymes R74.8 Hypertriglyceridemia E78.1 Pneumonia of right lower lobe due to infectious organism J18.9 Pneumonia type: due to unspecified organism Assessment & Plan Assessment & Plan (1) Elevated liver enzymes: Code(s): R74.8 - Abnormal levels of other serum enzymes Category: Medical Plan: Liver?enzymes?are?elevated?and?higher?than?last?check Will?check?ultrasound?of?liver (2) Hypertriglyceridemia: Code(s): E78.1 - Pure hyperglyceridemia Category: Medical Plan: Encouraged?weight?loss?and?diet?lower?in?saturated?fats?and?cholesterol Also?has?low?HDL?and?encouraged?increased?exercise (3) Right lower lobe pneumonia: Comment: 01/28/2024 Code(s): J18.9 - Pneumonia, unspecified organism Category: Medical Qualifiers: Pneumonia type: due to unspecified organism Qualified Code(s): J18.9 - Pneumonia, unspecified organism Plan: Lungs?are?now?clear?to?auscultation Minimal?cough - has?been?improving Repeat?Chest?x-ray?is?not?yet?read. Will?call?patient?if?action?is?required Orders: Orders US abdomen harper w elastography Today R74.8 - Abnormal levels of other serum enzymes
[2024-04-04 14:59] VITALS: BP 103/59; PULSE 66; RESP 16; TEMP 36.9; O2SAT 99; BMI 40.1
== END 2024-04-04 15:26 | disposition home or self-care (01) ==
LOC: HO.HMCFM 14:40
PROVIDERS: PCP Family Medicine; Visit Provider Family Medicine
DX: R74.8 Abnormal levels of other serum enzymes (principal); E78.1 Pure hyperglyceridemia; J18.9 Pneumonia, unspecified organism

== ENCOUNTER → 2024-04-04 14:39 | Outpatient (BNVA) | payer OTHER, SELFPAY | PROVIDERS: PCP Family Medicine; Visit Provider Family Medicine | DX: R74.8 Abnormal levels of other serum enzymes (principal); E78.1 Pure hyperglyceridemia; J18.9 Pneumonia, unspecified organism | CPT/HCPCS: 96127; 99212 ==

== ENCOUNTER 2024-05-06 08:55 | Outpatient (REF) | payer OTHER, SELFPAY ==
--- NOTE | ~2024-05-06 | US_ITS ---
EXAMINATION: US ABDOMEN LIMITED WITH LIVER ELASTOGRAPHY CLINICAL INFORMATION: R74.8 - Abnormal levels of other serum enzymes COMPARISON: None available. TECHNIQUE: Real-time imaging of the abdominal viscera. Noninvasive ultrasound liver fibrosis assessment is performed using Jyoti ElastPQ point quantification shear wave elastography (pSWE) with a 5 MHz transducer. Multiple elastography samples are obtained. FINDINGS: PANCREAS: The visualized, obscured by overlying bowel gas. LIVER: The liver demonstrates normal size, contour and echogenicity. No focal lesion or intrahepatic biliary duct dilatation. The right lobe measures 15.7 cm in length. The left lobe measures 13.9 cm in length. Shear wave elastography provides a median stiffness of 1.3 m/s (reference: normal median stiffness is 0.81 - 1.22 m/s). The IQR/median stiffness to assess sampling precision is 0.02 (reference: optimal IQR/median stiffness is under 0.3). GALLBLADDER: The gallbladder is physiologically distended without evidence of stones, sludge, polyps, wall thickening or pericholecystic fluid. COMMON BILE DUCT: Normal in caliber measuring 0.3 cm in diameter. RIGHT KIDNEY: No hydronephrosis. No renal calculi or focal parenchymal lesions. The kidney measures 12.1 cm in maximum dimension. FREE FLUID: None seen. US/US abdomen harper w elastography IMPRESSION: 1. No acute abnormality on this sonographic exam of the right upper quadrant. 2. Elastography: Minimally elevated liver stiffness value has a high probability of being top normal, with minimal risk for clinically significant liver fibrosis (METAVIR Stage F0-F1). Electronically signed by: Delphine Mosquera DO 06/10/2024 05:23 PM RODNEY
== END 2024-05-06 08:56 | disposition home or self-care (01) ==
LOC: HO.US 08:55
PROVIDERS: PCP Family Medicine; Visit Provider Family Medicine
DX: R74.8 Abnormal levels of other serum enzymes (principal)
CPT/HCPCS: 76705; 76981

== ENCOUNTER 2024-06-10 09:17 | Outpatient (AMB) | payer OTHER, SELFPAY ==
[2024-06-10 09:19] VITALS: BP 130/76; PULSE 60; O2SAT 98; BMI 37.5
--- NOTE | 2024-06-10 09:19 | MHC.PC.OV ---
Vital Signs 06/10/24 09:19 Height 6 ft 4 in Weight 308 lb BMI 37.5 BP 130/76 Blood Pressure Location Lt brachial Position Sitting Pulse 60 Pulse Source Pulse Oximeter Pulse Oximetry (%) 98 Intake Visit Reasons: f/u elevated liver enzymes, labs Intake Note: pt is here for f/up regarding elevated liver enzymes/labs, ultrasound has not been read yet but was requested to have it done for today by nathaniel atkinson. 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 [facility] Medical History Right lower lobe pneumonia Hand dermatitis Autism Surgical History No pertinent past surgical history Family History Mother Dementia Idiopathic parathyroidism Social History Household Members: None Housing: Condominium Are you a primary care process manager to a significant other at home: No Do you presently have visiting nurse or other home services: No 75 years or older and lives alone: No Alcohol intake: never Patient Tobacco Use Status: Never used Tobacco e-Cigarette/Vaping Use: Never Used service: No Current occupational status: employed Current occupation: [employer] Current occupational exposures/hazards: No Cognitive needs: No Hearing needs: No Vision needs: Yes (wears glasses) Questionnaire PHQ-9 Over the last 2 weeks, how often have you been bothered by any of the following problems? 1. Little interest or pleasure in doing things: not at all 2. Feeling down, depressed, or hopeless: not at all 3. Trouble falling or staying asleep, or sleeping too much: not at all 4. Feeling tired or having little energy: not at all 5. Poor appetite or overeating: not at all 6. Feeling bad about yourself - or that you are a failure or have let yourself or your family down: not at all 7. Trouble concentrating on things, such as reading the newspaper or watching television: not at all 8. Moving or speaking so slowly that other people could have noticed. Or the opposite - being so fidgety or restless that you have been moving around a lot more than usual: not at all 9. Thoughts that you would be better off or of hurting yourself in some way: not at all Total score: 0 Depression Screening Interpretation: Negative Depression Screening Done: Yes 29024 - PHQ-9 Billing: Yes Source: Developed by Drs. Bereket Pena, Swathi Gaitan, Jace Chaudhari and colleagues, with an educational noris from [employer]. Thrive Questionnaire Date Thrive assessed: 06/10/24 I am a: Patient What is your living situation today?: I have a steady place to live Within the past 12 months, did the food you bought not last and you didn't have the money to get more?: Never true Within the past 12 months, did you worry whether your food would run out before you got money to buy more?: Never true Do you have trouble paying for medicines?: No Do you have trouble getting transportation to medical appointments?: No Do you have trouble paying your heating and electricity bill?: No Do you have trouble taking care of your child, family member or friend?: No Do you have trouble with day-to-day activities such as bathing, preparing meals, shopping, managing finances, etc.?: No Are you currently unemployed and looking for a job?: No Are you interested in more education?: No Please select the resources that you would like help with: None Currently or been in a relationship where the following occur: No concerns reported THRIVE Score: 0 AUDIT C Alcohol Use Questionnaire (AUDIT-C) 1. How often do you have a drink containing alcohol?: Never 3. How often do you have six or more drinks on one occasion?: Never Total Score: 0 Score Reviewed/Action Taken: Yes MEAGHAN-7 AMB Questionnaire MEAGHAN-7 Date MEAGHAN - 7 assessed: 06/10/24 Feeling nervous, anxious, or on edge: 0 = Not at all Not being able to stop or control worryin = Not at all Worrying too much about different things: 0 = Not at all Trouble relaxin = Not at all Being so restless that it is hard to sit still: 0 = Not at all Becoming easily annoyed or irritable: 0 = Not at all Feeling afraid as if something awful might happen: 0 = Not at all Total MEAGHAN-7 score (0-4 normal; 5-9 mild; 10-14 moderate; 15-21 severe): 0 Source: Developed by Drs. Bereket Pena, Swathi Gaitan, Jace Chaudhari and colleagues, with an educational noris from [employer]. MEAGHAN-7 Assessment Billing MEAGHAN-7 Assessment Tool: MEAGHAN-7 Assessment 68301 Review of Systems Const Denies chills, Denies fatigue, Denies fever(s), Denies headache(s) and Denies weakness ENT Denies dizziness and Denies headache(s) Card Denies dyspnea Resp Denies cough, Denies dyspnea, Denies wheezing and Denies other (shortness of breath) Musc Denies numbness and Denies tingling Neuro Denies dizziness, Denies headache(s), Denies numbness, Denies tingling and Denies weakness Psych Denies anxiety and Denies depression Endo Denies fatigue Aller/Immun Denies wheezing Physical exam (Primary Care) Vital Signs: Last Vital Signs Pulse 60 06/10/24 09:19 BP 130/76 06/10/24 09:19 Pulse Ox 98 06/10/24 09:19 BMI result Body Mass Index 37.5 Tobacco/Smoking Status: Tobacco use Status Tobacco use date assessed 06/10/24 06/10/24 09:26 Patient Tobacco Use Status Never used Tobacco 06/10/24 09:26 e-Cigarette/Vaping Use Never Used 06/10/24 09:26 PHQ-9: PHQ-9 Score PHQ-9: Total score 0 06/10/24 09:26 Depression Screening Interpretation: Negative Thrive Assessment: Date of Thrive Assessment Date Thrive assessed 06/10/24 06/10/24 09:26 Currently or been in a relationship where the following occur: No concerns reported Const General: well developed; No acute distress Nutritional Appearance: well nourished Orientation/consciousness: patient oriented x3 [facility] Head: Yes normocephalic and Yes atraumatic Eyes General: appearance normal, both eyes and all related structures Pupils: Equal, round and reactive pupils present EOM: EOMs intact bilaterally Resp Effort & Inspection: normal respiratory effort Neuro General: patient oriented x3 and gait normal Cranial nerves: Yes Equal, round and reactive pupils present Psych Affect: normal affect Coding Level of Care Code Est Pt Level 4 (01125) Diagnoses Elevated liver enzymes R74.8 Obesity E66.9 Hypertriglyceridemia E78.1 Low vitamin D level R79.89 Additional Codes MEAGHAN-7 Assessment Billing - MEAGHAN-7 Assessment Tool: MEAGHAN-7 Assessment 81212 ([id number]) PHQ-9 - 04582 - PHQ-9 Billing: Yes ([id number]) Assessment & Plan Assessment & Plan (1) Elevated liver enzymes: Code(s): R74.8 - Abnormal levels of other serum enzymes Category: Medical Plan: Liver?enzymes?have?been?elevated?and?I?ordered?a?liver?ultrasound?which?is?acquired?but?has?not?been?read?yet. Will?ask?patient?to?reschedule?by?telemedicine?next?week?and?we?will?review?this Rechecking?liver?enzymes?today?as?patient?has?been?working?on?weight?loss (2) Obesity: Code(s): E66.9 - Obesity, unspecified Category: Medical Plan: Patient?has?been?doing?a?good?job?with?weight?loss. We?discussed?that?his?long-term?goal?should?be?around?197-200?lb?which?would?give?him?in?approximate?BMI?of?25 A?more?obtain?low?goal?would?be?for?him?to?work?on?a?15-20?lb?weight?loss?over?the?next?2-3?months. We?discussed?healthy?diet?and?portion?sizes?as?well?as?adding?exercise?to?his?regimen.??Has?an active?lifestyle. Will?continue?to?monitor (3) Hypertriglyceridemia: Code(s): E78.1 - Pure hyperglyceridemia Category: Medical Plan: Rechecking?lipids (4) Low vitamin D level: Code(s): R79.89 - Other specified abnormal findings of blood chemistry Category: Medical Plan: Rechecking?vitamin-D?level?as?well Orders: Orders Comprehensive Brule. Panel Fast Today R74.8 - Abnormal levels of other serum enzymes, Z00.00 - Encounter for general adult medical examination without abnormal findings Vitamin D 25-OH Total Today E55.9 - Vitamin D deficiency, unspecified, R79.89 - Other specified abnormal findings of blood chemistry LDL Cholesterol Direct Today E78.1 - Pure hyperglyceridemia, E78.5 - Hyperlipidemia, unspecified Lipid Panel Today E78.1 - Pure hyperglyceridemia, Z00.00 - Encounter for general adult medical examination without abnormal findings
== END 2024-06-10 09:57 | disposition home or self-care (01) ==
PROVIDERS: PCP Family Medicine; Visit Provider Family Medicine
DX: R74.8 Abnormal levels of other serum enzymes (principal); E66.9 Obesity, unspecified; Z68.37 Body mass index [BMI] 37.0-37.9, adult; E78.1 Pure hyperglyceridemia; R79.89 Other specified abnormal findings of blood chemistry

== ENCOUNTER → 2024-06-10 09:17 | Outpatient (BNVA) | payer OTHER, SELFPAY | PROVIDERS: PCP Family Medicine; Visit Provider Family Medicine | DX: R74.8 Abnormal levels of other serum enzymes (principal); R79.89 Other specified abnormal findings of blood chemistry; E78.1 Pure hyperglyceridemia; E66.9 Obesity, unspecified | CPT/HCPCS: 96127; 99212 ==

== ENCOUNTER 2024-06-10 10:00 | Outpatient (REF) | payer OTHER, SELFPAY ==
[2024-06-10 12:43] LABS: Vitamin D 25-OH Total 28.8 ng/mL (>30)
[2024-06-10 12:44] LABS: Anion Gap 10 (12-20)
[2024-06-10 12:49] LABS: Alanine Aminotransferase 48 U/L (0-40); Albumin Level 4.7 g/dL (3.5-5.0); Alkaline Phosphatase 49 U/L (39-117); Aspartate Amino Transferase 34 U/L (5-37); Bilirubin Total 1.8 mg/dL (0.0-1.0); Blood Urea Nitrogen 11 mg/dL (9-16); Calcium 9.5 mg/dL (8.4-10.2); Carbon Dioxide 28 mmol/L (22-29); Chloride 107 mmol/L (96-108); Cholesterol 166 mg/dL (<200); Estimated Glomerular Filt Rate > 60; Glucose Fasting 70 mg/dL (60-99); HDL Cholesterol 29 mg/dL (>40); LDL Cholesterol Calculated 82 mg/dL (<100); Potassium 4.2 mmol/L (3.3-5.1); Sodium 141 mmol/L (135-145); Total Protein 7.3 g/dL (6.5-8.0); Triglycerides 277 mg/dL (<150)
[2024-06-13 10:29] LABS: LDL Cholesterol Direct 98 mg/dL (<100)
== END 2024-06-10 10:01 | disposition home or self-care (01) ==
LOC: HO.WFDLDS 10:00
PROVIDERS: Visit Provider Family Medicine
DX: Z00.00 Encounter for general adult medical examination without abnormal findings (principal); R74.8 Abnormal levels of other serum enzymes; E55.9 Vitamin D deficiency, unspecified; R79.89 Other specified abnormal findings of blood chemistry; E78.1 Pure hyperglyceridemia; E78.5 Hyperlipidemia, unspecified
CPT/HCPCS: 36415; 80053; 80061; 82306; 83721

== ENCOUNTER 2024-06-16 11:14 | Outpatient (AMB) | payer OTHER, SELFPAY ==
--- NOTE | 2024-06-16 11:09 | MHC.PC.OV ---
Intake Visit Reasons: f/u liver enzymes via telemedicine Allergies No Known Allergies Allergy (Verified 06/16/24 11:12) Tobacco use date assessed: 06/10/24 Dental Screening Dental Screen Date: 06/10/24 HPI f/u liver enzymes via telemedicine HPI Details 34 y/o male presents to f/u liver enzymes and liver ultrasound via telemedicine. Per liver ultrasound note: IMPRESSION: 1. No acute abnormality on this sonographic exam of the right upper quadrant. 2. Elastography: Minimally elevated liver stiffness value has a high probability of being top normal, with minimal risk for clinically significant liver fibrosis (METAVIR Stage F0-F1). [facility] Medical History Right lower lobe pneumonia Hand dermatitis Autism Surgical History No pertinent past surgical history Family History Mother Dementia Idiopathic parathyroidism Social History Household Members: None Housing: Condominium Are you a primary health care / medical job titles to a significant other at home: No Do you presently have visiting nurse or other home services: No 75 years or older and lives alone: No Alcohol intake: never Patient Tobacco Use Status: Never used Tobacco e-Cigarette/Vaping Use: Never Used service: No Current occupational status: employed Current occupation: [employer] Current occupational exposures/hazards: No Cognitive needs: No Hearing needs: No Vision needs: Yes (wears glasses) Questionnaire Thrive Questionnaire Date Thrive assessed: 06/10/24 I am a: Patient What is your living situation today?: I have a steady place to live Within the past 12 months, did the food you bought not last and you didn't have the money to get more?: Never true Within the past 12 months, did you worry whether your food would run out before you got money to buy more?: Never true Do you have trouble paying for medicines?: No Do you have trouble getting transportation to medical appointments?: No Do you have trouble paying your heating and electricity bill?: No Do you have trouble taking care of your child, family member or friend?: No Do you have trouble with day-to-day activities such as bathing, preparing meals, shopping, managing finances, etc.?: No Are you currently unemployed and looking for a job?: No Are you interested in more education?: No Please select the resources that you would like help with: None Currently or been in a relationship where the following occur: No concerns reported THRIVE Score: 0 MEAGHAN-7 AMB Questionnaire MEAGHAN-7 Date MEAGHAN - 7 assessed: 06/10/24 Source: Developed by Drs. Bereket Pena, Swathi Gaitan, Jace Chaudhari and colleagues, with an educational noris from [employer]. Physical exam (Primary Care) Tobacco/Smoking Status: Tobacco use Status Tobacco use date assessed 06/10/24 06/16/24 11:11 Patient Tobacco Use Status Never used Tobacco 06/16/24 11:11 e-Cigarette/Vaping Use Never Used 06/16/24 11:11 Thrive Assessment: Date of Thrive Assessment Date Thrive assessed 06/10/24 06/16/24 11:11 Currently or been in a relationship where the following occur: No concerns reported Telehealth Telehealth Telehealth Platform: Telephone Location of provider rendering services: practice address Location of patient: address on file Patient Identification confirmed using: Name, : Yes Telehealth method: voice only Patient verbally consented to treatment: Yes Patient verbally consented to billing insurance company: Yes Patient informed of any privacy concerns related to visit: Yes Minutes spent on Phone/Video with Pt.: 14 Coding Level of Care Code Tele Est Pt Level 2 (29414) Diagnoses Elevated liver enzymes R74.8 Low vitamin D level R79.89 Obesity E66.9 Hypertriglyceridemia E78.1 Assessment & Plan Assessment & Plan (1) Elevated liver enzymes: Code(s): R74.8 - Abnormal levels of other serum enzymes Category: Medical Plan: Liver?enzymes?are?decreasing?with?weight?loss. Ultrasound?shows?essentially?normal?liver?without?increased?liver?stiffness Continue?working?at?diet?and?exercise?for?weight?loss Hydrate?well We?will?continue?to?monitor (2) Low vitamin D level: Code(s): R79.89 - Other specified abnormal findings of blood chemistry Category: Medical Plan: Vitamin-D?level?is?slightly?low.??He?is?taking?an?OTC?vitamin-D?supplement?daily.??He?will?take?them?daily?on?the?week?days?and?to?on?weekends, through?the?winter?months. (3) Obesity: Code(s): E66.9 - Obesity, unspecified Category: Medical Plan: Patient?continues?to?work?at?weight?loss?and?encouraged?this Also?encouraged?increased?exercise (4) Hypertriglyceridemia: Code(s): E78.1 - Pure hyperglyceridemia Category: Medical Plan: Triglycerides?are?still?high. Encouraged?diet?lower?in?saturated?fats?and?cholesterol?as?well?as?sugars Encouraged?ongoing?weight?loss?through?diet?and?exercise
== END 2024-06-16 17:05 | disposition home or self-care (01) ==
LOC: HO.HMCFM 11:14
PROVIDERS: PCP Family Medicine; Visit Provider Family Medicine
DX: R74.8 Abnormal levels of other serum enzymes (principal); R79.89 Other specified abnormal findings of blood chemistry; E66.9 Obesity, unspecified; E78.1 Pure hyperglyceridemia

== ENCOUNTER 2024-09-02 10:25 | Outpatient (AMB) | payer OTHER, SELFPAY ==
--- NOTE | 2024-09-02 10:34 | A.OFFPC_ITS ---
Vital Signs 09/02/24 10:52 Height 6 ft 4 in Weight 299 lb BMI 36.4 BP 98/66 Blood Pressure Location Lt brachial Position Sitting Respiration 12 Pulse 60 Pulse Source Pulse Oximeter Temp 97.1 F Temp Source Oral Pulse Oximetry (%) 100 Oxygen Delivery Method Room Air Intake Visit Reasons: PE Intake Note: CPE Space Controller Required: No Allergies No Known Allergies Allergy (Verified 09/02/24 11:01) Medication List - Last Reconciled 09/02/24 by JULIO Don No Known Home Meds Tobacco use date assessed: 09/02/24 Dental Screening Dental Screen Date: 09/02/24 Did you have a dental visit in the last 12 months?: Yes Did you have a dental problem in the last 6 months where you did not have access to dental care?: No Was dental information given to patient?: Patient has dentist HPI HPI Comments History of Present Illness Details 34 y/o M with autism, elevated LFT d/t f atty liver, hypertriglyceridemia, Vit d def, obesity Family hx no changes Surgery none Social: 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 Complains of intermittent eye dryness and watering at night over the past few weeks. Has appt w/ eye doctor on Thursday. Denies any trauma, fever, visual disturbances. This is to reports that the eye redness has been persistent for a number of weeks with note change right worse than left. - The patient notes significant and inte ntional weight loss over the last year. - Cholesterol levels and liver enzymes s howed improvement from June - The patient reports a subtle sensation of fullness in the right testicle, with no pain or significant discomfort. Denies any urinary complaints. Exam: General: Well developed, well nourished, in no acute distress. Appears stated age. Head: Normocephalic, atraumatic. Eyes: Pupils are equal, round and reactive to light and accommodation. Conjunctival injection bilat right worse than left, EOMI, wearing glasses, no drainage or lid edema Ears: Cerumen impaction bilat. Bilat ears successfully irrigated revealing intact tympanic membranes bilat. patient tolerated well Nose: Patent, without discharge. Mouth: There are no ulcers or lesions noted. No inflammation, no post nasal drip, no plaques nor exudates. Neck: Supple, no adenopathy or thyromegaly. Lungs: Clear to auscultation bilaterally. No rales, rhonchi or wheeze noted. Go od air flow in all walter. Heart: Regular rate and rhythm. No murmurs, click, rubs or gallops are noted. Abdomen: Bowel sounds present in all quadrants. The abdomen is soft, nontender, with no masses or organomegaly noted. No hernias are noted. : Varicocele on the right, Reviewed GLENDA Musculoskeletal: Joints are nontender, without swelling, redness, or effusions. Range of motion is observed to be normal. Pulses: Peripheral pulses are equal and palpable bilaterally. Extremities: No clubbing, cyanosis nor edema is noted. Neurologic: Gait and station normal. Cranial Nerves 2-12 intact. Motor strength grossly symmetrical and intact. No sensory loss. Balance normal. Skin: No rashes, ulcers, or lesions noted. Turgor is good. Skin color is good. Hair and nails are without abnormalities. Psych: Normal eye contact, affect and mood appropriate, and normal interactions. Patient is alert and appropriate to context. Discussion During the visit, I discussed the redness in the patient's eyes, emphasizing the plan to follow up with the coal shoveler to avoid introducing any interventions before this consultation. Regarding weight management, I commended the patient?s progress and reiterated the importance of maintaining lifestyle changes to manage cholesterol and liver enzyme levels. For the varicocele, we discussed the option of visiting a specialist if symptoms worsen. No immediate intervention is planned, given the absence of significant discomfort. We also reviewed the patient's current vaccination status and affirmed upcoming routine lab work in six months. RTO 6 months w repeat labs [address] Madison for fatty liver and hypertriglyceridemia. Sooner PRN An additional 20 minutes was spent addressing the problem(s) noted at todays visit. This includes time spent before the visit reviewing the chart, time spent during the visit, and time spent after the visit on documentation reviewing laboratory results, diagnostic imaging, medications, performing a medically necessary evaluation, counseling on diagnoses, care coordination, ordering appropriate tests, ordering appropriate medications, review of tests performed by other providers, reporting test results with the patient, communication with other healthcare providers. [facility] Medical History (Updated 09/02/24 @ 14:42 by Kristen Beltran, [facility]) Autism Hand dermatitis Right lower lobe pneumonia Surgical History No pertinent past surgical history Family History Mother Dementia Idiopathic parathyroidism Social History Household Members: None Housing: Condominium Are you a primary career services officer to a significant other at home: No Do you presently have visiting nurse or other home services: No 75 years or older and lives alone: No Alcohol intake: never Patient Tobacco Use Status: Never used Tobacco e-Cigarette/Vaping Use: Never Used service: No Current occupational status: employed Current occupation: [employer] Current occupational exposures/hazards: No Cognitive needs: No Hearing needs: No Vision needs: Yes (wears glasses) Questionnaire PHQ-9 Over the last 2 weeks, how often have you been bothered by any of the following problems? 1. Little interest or pleasure in doing things: not at all 2. Feeling down, depressed, or hopeless: not at all 3. Trouble falling or staying asleep, or sleeping too much: not at all 4. Feeling tired or having little energy: not at all 5. Poor appetite or overeating: not at all 6. Feeling bad about yourself - or that you are a failure or have let yourself or your family down: not at all 7. Trouble concentrating on things, such as reading the newspaper or watching television: not at all 8. Moving or speaking so slowly that other people could have noticed. Or the opposite - being so fidgety or restless that you have been moving around a lot more than usual: not at all 9. Thoughts that you would be better off or of hurting yourself in some way: not at all Total score: 0 Depression Screening Interpretation: Negative Depression Screening Done: Yes 69781 - PHQ-9 Billing: Yes Source: Developed by Drs. Bereket Pena, Swathi Gaitan, Jace Chaudhari and colleagues, with an educational noris from [employer] Thrive Questionnaire Date Thrive assessed: 09/02/24 I am a: Patient What is your living situation today?: I have a steady place to live Within the past 12 months, did the food you bought not last and you didn't have the money to get more?: Never true Within the past 12 months, did you worry whether your food would run out before you got money to buy more?: Never true Do you have trouble paying for medicines?: No Do you have trouble getting transportation to medical appointments?: No Do you have trouble paying your heating and electricity bill?: No Do you have trouble taking care of your child, family member or friend?: No Do you have trouble with day-to-day activities such as bathing, preparing meals, shopping, managing finances, etc.?: No Are you currently unemployed and looking for a job?: No Are you interested in more education?: No Please select the resources that you would like help with: None Currently or been in a relationship where the following occur: No concerns reported THRIVE Score: 0 AUDIT C Alcohol Use Questionnaire (AUDIT-C) 1. How often do you have a drink containing alcohol?: Never 3. How often do you have six or more drinks on one occasion?: Never Total Score: 0 Score Reviewed/Action Taken: Yes MEAGHAN-7 AMB Questionnaire MEAGHAN-7 Date MEAGHAN - 7 assessed: 09/02/24 Feeling nervous, anxious, or on edge: 0 = Not at all Not being able to stop or control worryin = Not at all Worrying too much about different things: 0 = Not at all Trouble relaxin = Not at all Being so restless that it is hard to sit still: 0 = Not at all Becoming easily annoyed or irritable: 0 = Not at all Feeling afraid as if something awful might happen: 0 = Not at all Total MEAGHAN-7 score (0-4 normal; 5-9 mild; 10-14 moderate; 15-21 severe): 0 Source: Developed by Drs. Bereket Pena, Swathi Gaitan, Jace Chaudhari and colleagues, with an educational noris from [employer] MEAGHAN-7 Assessment Billing MEAGHAN-7 Assessment Tool: MEAGHAN-7 Assessment 17771 Physical exam (Primary Care) Vital Signs: Last Vital Signs Temp 97.1 F 09/02/24 10:52 Pulse 60 04/04/25 10:52 Resp 12 09/02/24 10:52 BP 98/66 09/02/24 10:52 Pulse Ox 100 09/02/24 10:52 Oxygen Delivery Method Room Air 09/02/24 10:52 BMI result Body Mass Index 36.4 BMI Assessment/Plan discussion: High BMI High, discussed plan: lifestyle Tobacco/Smoking Status: Tobacco use Status Tobacco use date assessed 09/02/24 09/02/24 10:35 Patient Tobacco Use Status Never used Tobacco 09/02/24 10:35 e-Cigarette/Vaping Use Never Used 09/02/24 10:35 PHQ-9: PHQ-9 Score PHQ-9: Total score 0 09/02/24 11:01 Depression Screening Interpretation: Negative Thrive Assessment: Date of Thrive Assessment Date Thrive assessed 09/02/24 09/02/24 10:35 Currently or been in a relationship where the following occur: No concerns reported Office Procedures Cerumen Removal From which ear canal was the cerumen removed: bilateral Removal: irrigation Notes: patient tolerated procedure well, no complications and ear canal clear 42979-Lic Irrigation/Lavage Coding Level of Care Code Est Pt Level 3 (98272) Est Pt Prev Care 18-39y(31708) Diagnoses Encounter for general adult medical examination with abnormal findings Z00.01 Elevated liver enzymes R74.8 Hypertriglyceridemia E78.1 Low vitamin D level R79.89 Right varicocele I86.1 Autism F84.0 Class 2 obesity due to excess calories without serious comorbidity with body mass index (BMI) of 36.0 to 36.9 in adult E66.812; E66.09; Z68.36 Obesity type: due to excess calories Obesity classification: adult class 2 (BMI 35 - 39.9) Serious obesity comorbidity presence: without serious comorbidity Body mass index: BMI 36.0-36.9 Impacted cerumen, bilateral H61.23 Conjunctival hyperemia of both eyes H11.433 Laterality: bilateral CPT Codes Office Procedure - CPT: 09550-Fgw Irrigation/Lavage ([id number]) Additional Codes MEAGHAN-7 Assessment Billing - MEAGHAN-7 Assessment Tool: MEAGHAN-7 Assessment 24244 ([id number]) PHQ-9 - 20551 - PHQ-9 Billing: Yes ([id number]) Assessment & Plan Assessment & Plan (1) Encounter for general adult medical examination with abnormal findings: Onset Date: ~08/2024 Code(s): Z00.01 - Encounter for general adult medical examination with abnormal findings Category: Medical (2) Elevated liver enzymes: Code(s): R74.8 - Abnormal levels of other serum enzymes Category: Medical (3) Hypertriglyceridemia: Code(s): E78.1 - Pure hyperglyceridemia Category: Medical (4) Low vitamin D level: Code(s): R79.89 - Other specified abnormal findings of blood chemistry Category: Medical (5) Right varicocele: Code(s): I86.1 - Scrotal varices Category: Medical (6) Autism: Code(s): F84.0 - Autistic disorder Category: Medical (7) Obesity: Code(s): E66.9 - Obesity, unspecified Category: Medical Qualifiers: Obesity type: due to excess calories Obesity classification: adult class 2 (BMI 35 - 39.9) Serious obesity comorbidity presence: without serious comorbidity Body mass index: BMI 36.0-36.9 Qualified Code(s): E66.812 - Obesity, class 2; E66.09 - Other obesity due to excess calories; Z68.36 - Body mass index [BMI] 36.0-36.9, adult (8) Impacted cerumen, bilateral: Code(s): H61.23 - Impacted cerumen, bilateral (9) Conjunctival injection: Code(s): H11.439 - Conjunctival hyperemia, unspecified eye Qualifiers: Laterality: bilateral Qualified Code(s): H11.433 - Conjunctival hyperemia, bilateral Plan . Orders: Orders Lipid Panel 6 Months E78.1 - Pure hyperglyceridemia, R74.8 - Abnormal levels of other serum enzymes, R79.89 - Other specified abnormal findings of blood chemistry Vitamin D 25-OH Total 6 Months E78.1 - Pure hyperglyceridemia, R74.8 - Abnormal levels of other serum enzymes, R79.89 - Other specified abnormal findings of blood chemistry Comprehensive Met. Panel 6 Months E78.1 - Pure hyperglyceridemia, R74.8 - Abnormal levels of other serum enzymes, R79.89 - Other specified abnormal findings of blood chemistry
[2024-09-02 10:52] VITALS: BP 98/66; PULSE 60; RESP 12; TEMP 36.2; O2SAT 100; BMI 36.4
== END 2024-09-02 11:20 | disposition home or self-care (01) ==
LOC: HO.HMCFM 10:26
PROVIDERS: PCP Family Medicine; Visit Provider Nurse Practitioner Family
DX: Z00.01 Encounter for general adult medical examination with abnormal findings (principal); R74.8 Abnormal levels of other serum enzymes; E78.1 Pure hyperglyceridemia; R79.89 Other specified abnormal findings of blood chemistry; I86.1 Scrotal varices; F84.0 Autistic disorder; E66.812 Obesity, class 2; E66.09 Other obesity due to excess calories; Z68.36 Body mass index [BMI] 36.0-36.9, adult; H61.23 Impacted cerumen, bilateral; H11.433 Conjunctival hyperemia, bilateral

== ENCOUNTER → 2024-09-02 10:25 | Outpatient (BNVA) | payer OTHER, SELFPAY | PROVIDERS: PCP Family Medicine; Visit Provider Nurse Practitioner Family | DX: Z00.01 Encounter for general adult medical examination with abnormal findings (principal); H61.23 Impacted cerumen, bilateral; H11.433 Conjunctival hyperemia, bilateral; R74.8 Abnormal levels of other serum enzymes; E78.1 Pure hyperglyceridemia; R79.89 Other specified abnormal findings of blood chemistry; I86.1 Scrotal varices; F84.0 Autistic disorder; E66.812 Obesity, class 2; E66.09 Other obesity due to excess calories; Z68.36 Body mass index [BMI] 36.0-36.9, adult | CPT/HCPCS: 69209; 96127; 99212; 99395 ==

== ENCOUNTER 2025-03-24 07:06 | Outpatient (REF) | payer OTHER, SELFPAY ==
[2025-03-24 10:37] LABS: Alanine Aminotransferase 40 U/L (0-40); Albumin Level 4.8 g/dL (3.5-5.0); Alkaline Phosphatase 54 U/L (39-117); Anion Gap 11 (12-20); Aspartate Amino Transferase 37 U/L (5-37); Blood Urea Nitrogen 12 mg/dL (9-16); Calcium 9.3 mg/dL (8.4-10.2); Carbon Dioxide 28 mmol/L (22-29); Chloride 105 mmol/L (96-108); Cholesterol 188 mg/dL (<200); Estimated Glomerular Filt Rate > 60; HDL Cholesterol 30 mg/dL (>40); Potassium 4.0 mmol/L (3.3-5.1); Sodium 140 mmol/L (135-145); Total Protein 7.2 g/dL (6.5-8.0); Triglycerides 259 mg/dL (<150)
== END 2025-03-24 07:07 | disposition home or self-care (01) ==
LOC: HO.HMGCLDS 07:06
PROVIDERS: PCP Family Medicine; Visit Provider Nurse Practitioner Family
DX: R74.8 Abnormal levels of other serum enzymes (principal); E78.1 Pure hyperglyceridemia; R79.89 Other specified abnormal findings of blood chemistry; Z79.899 Other long term (current) drug therapy
CPT/HCPCS: 36415; 80053; 80061; 82306; 99212

== ENCOUNTER 2025-03-24 10:33 | Outpatient (AMB) | payer OTHER, SELFPAY ==
--- NOTE | 2025-03-24 10:45 | A.OFFPC_ITS ---
Vital Signs 03/24/25 10:50 Height 6 ft 4 in Weight 304 lb 4 oz BMI 37.0 BP 110/70 Blood Pressure Location Rt brachial Position Sitting Respiration 14 Pulse 66 Pulse Source Pulse Oximeter Temp 97.7 F Temp Source Temporal Artery Scan Pulse Oximetry (%) 97 Oxygen Delivery Method Room Air Intake Visit Reasons: 6 moDr G routinefu:fatty liver,elevated triglyceri Intake Note: Rod presents in the office for a 6 month follow up to discuss fatty liver and elevated trigycerides. Allergies No Known Allergies Allergy (Verified 03/24/25 10:48) Medication List - Last Reconciled 03/24/25 by Shai Recinos MD multivitamin tabs PO DAILY Tobacco use date assessed: 03/24/25 Dental Screening Dental Screen Date: 03/24/25 Did you have a dental visit in the last 12 months?: Yes Did you have a dental problem in the last 6 months where you did not have access to dental care?: No Was dental information given to patient?: Patient has dentist HPI 6 moDr G routinefu:fatty liver,elevated triglyceri HPI Details 34 y/o male presents to f/u labs, liver enzymes. Labs drawn 03/24/25. Reviewed labs with pt. AST 37. ALT improved from 48 to 40. Triglycerides 259. TC 188. LDL 107. HDL low at 30 Recent liver ultrasound showed no significant abnormalities. Pt notes he exercises 2x a week at the gym. Vitamin D improved to 49.6. [facility] Medical History (Updated 09/02/24 @ 14:42 by Kristen Beltran, CLIENT DIRECTOR-) Right lower lobe pneumonia Hand dermatitis Autism Surgical History No pertinent past surgical history Family History Mother Dementia Idiopathic parathyroidism Social History (Updated 03/24/25 @ 10:50 by Clari Mooney CMA) Household Members: None Housing: Condominium Are you a primary career based intervention coordinator to a significant other at home: No Do you presently have visiting nurse or other home services: No 75 years or older and lives alone: No Alcohol intake: never Patient Tobacco Use Status: Never used Tobacco e-Cigarette/Vaping Use: Never Used Second Hand Smoke Exposure: No service: No Current occupational status: employed Current occupation: [employer] Current occupational exposures/hazards: No Cognitive needs: No Hearing needs: No Vision needs: Yes (wears glasses) Questionnaire Thrive Questionnaire Date Thrive assessed: 09/02/24 I am a: Patient What is your living situation today?: I have a steady place to live Within the past 12 months, did the food you bought not last and you didn't have the money to get more?: Never true Within the past 12 months, did you worry whether your food would run out before you got money to buy more?: Never true Do you have trouble paying for medicines?: No Do you have trouble getting transportation to medical appointments?: No Do you have trouble paying your heating and electricity bill?: No Do you have trouble taking care of your child, family member or friend?: No Do you have trouble with day-to-day activities such as bathing, preparing meals, shopping, managing finances, etc.?: No Are you currently unemployed and looking for a job?: No Are you interested in more education?: No Please select the resources that you would like help with: None Currently or been in a relationship where the following occur: No concerns reported THRIVE Score: 0 MEAGHAN-7 AMB Questionnaire MEAGHAN-7 Date MEAGHAN - 7 assessed: 09/02/24 Source: Developed by Drs. Bereket Pena, Swathi Gaitan, Jcae Chaudhari and colleagues, with an educational noris from [employer] Review of Systems Const Denies chills, Denies fatigue, Denies fever(s), Denies headache(s) and Denies weakness ENT Denies dizziness and Denies headache(s) Card Denies dyspnea Resp Denies cough, Denies dyspnea, Denies wheezing and Denies other (shortness of breath) Musc Denies numbness and Denies tingling Neuro Denies dizziness, Denies headache(s), Denies numbness, Denies tingling and Denies weakness Psych Denies anxiety and Denies depression Endo Denies fatigue Aller/Immun Denies wheezing Physical exam (Primary Care) Vital Signs: Last Vital Signs Temp 97.7 F 03/24/25 10:50 Pulse 66 03/24/25 10:50 Resp 14 03/24/25 10:50 BP 110/70 03/24/25 10:50 Pulse Ox 97 03/24/25 10:50 Oxygen Delivery Method Room Air 03/24/25 10:50 BMI result Body Mass Index 37.0 Tobacco/Smoking Status: Tobacco use Status Tobacco use date assessed 03/24/25 03/24/25 10:52 Patient Tobacco Use Status Never used Tobacco 03/24/25 10:50 e-Cigarette/Vaping Use Never Used 03/24/25 10:50 Thrive Assessment: Date of Thrive Assessment Date Thrive assessed 09/02/24 03/24/25 10:45 Currently or been in a relationship where the following occur: No concerns reported Const General: well developed; No acute distress Nutritional Appearance: well nourished Orientation/consciousness: patient oriented x3 HENMT Head: Yes normocephalic and Yes atraumatic Eyes General: appearance normal, both eyes and all related structures Pupils: Equal, round and reactive pupils present EOM: EOMs intact bilaterally Resp Effort & Inspection: normal respiratory effort Neuro General: patient oriented x3 and gait normal Cranial nerves: Yes Equal, round and reactive pupils present Psych Affect: normal affect Coding Level of Care Code Est Pt Level 4 (68625) Diagnoses Elevated liver enzymes R74.8 Hypertriglyceridemia E78.1 Low vitamin D level R79.89 Assessment & Plan Assessment & Plan (1) Elevated liver enzymes: Code(s): R74.8 - Abnormal levels of other serum enzymes Category: Medical Plan: Following patient for elevated liver enzymes and he had an ultrasound in May which was unremarkable. No hepatic lesions or hepatic steatosis Elastography was normal Had encouraged conservative treatment including good hydration and weight loss. He has been working on hydration and liver enzymes are within normal range. Has not lost any weight yet and I encouraged this as well (2) Hypertriglyceridemia: Code(s): E78.1 - Pure hyperglyceridemia Category: Medical (3) Low vitamin D level: Code(s): R79.89 - Other specified abnormal findings of blood chemistry Category: Medical Plan: Patient is now taking multivitamin and vitamin-D level is within normal range. Continue vitamin-D in multivitamin Plan Following patient's lipids and LDL has climbed above 100 HDL is still low Encouraged weight loss and diet low in saturated fats and cholesterol. Encouraged exercise. Will continue to monitor and advise patient Orders: Orders Comprehensive [place]. Panel Fast Today Z00.00 - Encounter for general adult medical examination without abnormal findings Complete Blood Count Auto Diff Today Z00.00 - Encounter for general adult medical examination without abnormal findings Microalbumin, Random (w Creat) Today I10 - Essential (primary) hypertension Lipid Panel Today Z00.00 - Encounter for general adult medical examination without abnormal findings TSH reflex Free T4 Today Z00.00 - Encounter for general adult medical examination without abnormal findings UA CC w/rflx Micro + Cult Today Z00.00 - Encounter for general adult medical examination without abnormal findings
[2025-03-24 10:50] VITALS: BP 110/70; PULSE 66; RESP 14; TEMP 36.5; O2SAT 97; BMI 37.0
--- OUTSIDE RECORDS SUMMARY | 2025-03-24 12:10 | XMS_ITS | Clinical Summary ---
Author Organization [facility] Address [address] [address] Phone Care Team Providers Care Financial Service Rep Name Role Phone Lila Mcmillan MD Unavailable [phone] Farzana Cody MD Primary Care Provider [email or web address] Allergies No known active allergies Medications triamcinolone acetonide 0.1 % creamIndication s:Other atopic dermatitis Apply topically 2 (two) times a day. 30 g Active Active Problems Problem Noted Date Diagnosed Date Health care maintenance 2021 Assessment & Plan (2021 11:21 AM EST): Up-to-date on recommended vaccinations and screenings Autism 02/08/2021 Assessment & Plan (2021 11:20 AM EST): Not currently working at the moment, due to scheduling conflicts with previous job May be moving into his own place soon, separate from his sister Hypertriglyceridemia 02/08/2021 Assessment & Plan (2021 11:20 AM EST): We will recheck in 6 months Hopefully should improve with gradual weight loss Class 3 severe obesity due t o excess calories without serious comorbidity with body mass index (BMI) of 40.0 to 44.9 in adult 02/08/2021 Assessment & Plan (2021 11:20 AM EST): Has lost over 10 pounds since her last visit Encouraged him on his continued work on weight loss Other atopic dermatitis 02/08/2021 Assessment & Plan (2021 11:21 AM EST): Improved with triamcinolone Immunizations Immunization Administration Dates Next Due COVID-19 (Pre-03/23) Moderna Vaccine, mRNA, PF 04/26/2021 COVID-19 (Pre) Pfizer Vaccine, mRNA, PF 10/03/2020,09/10/2020 DTaP 12/21/1995, 4,11/06/1993,08/13 [id number] 02/23/1994,1992,1992 [id number] FORMULATION 04/13/2009 Hepatitis A, ped/adol, 2 dose 02/27/2011 Hepatitis B Adult 07/20/2001,01/20/2001,11/17/19 01 Hib,PRP-T 11/06/1993 INFLUENZA, SPLIT VIRUS, TRIVALENT PF 03/23/2015 INFLUENZA, SPLIT VIRUS, TRIV ALENT W/ PRESERVATIVE IM 03/19/2016,02/27/2011 IPV 05/23/2003 Influenza Quadrivalent MDCK Preservative Free IM 03/21/2023,02/22/2019 Influenza Quadrivalent Prese rvative Free IM 03/11/2022,04/18/2021,02/10/2020,02/07,03/02/2017,02/26/2016 Influenza quadrivalent nasal 03/04/2012,02/26/20 10 Influenza, Unspecified Formulation 02/22/2019 MMR 05/23/2003,08/09/1993,1992 MMRV 04/11/2003 Meningococcal MCV4, unspecif ied Formulation 01/13/2013,12/27/2007 Td (adult),2 Lf Tetanus Toxo id, PF, Adsorbed 02/08/2021,10/24/2003,11/12/1997 Tdap 02/27/2011 Family History Medical History Relation Comments Hyperlipidemia Maternal Grandmother Diabetes mellitus Maternal Uncle Arrhythmia Mother Epilepsy Mother Melanoma Mother Social phobia Paternal Grandfather Relation Status Comments Maternal Grandmother Maternal Uncle Mother Paternal Grandfather Social History Tobacco Use Types Packs/Day Years Used Date Smoking Tobacco: Never Smokeless Tobacco: Never Alcohol Use Standard Drinks/Week Comments Never 0 (1 standard drink = 0.6 oz pur e alcohol) Child or Family Care Answer Date Record ed Do you have problems with on e of the following making it difficult for you to work, study, or receive health care? No 05/10/2021 Education Answer Date Recorded Are you interested in more education? Not on nancy e 2023 Are you concerned about learning? Not on file 2023 No 2023 No 2023 Food Answer Date Recorded Within the past 6 months we worried whether our food would run out before we got money to buy more. Never True 05/10/2021 Within the past 6 months the food we bought just didn't last and we didn't have enough money to get more. Never True Residential Stability Answer Date Recor ded What is your housing situation today? I have stacy sing 05/10/2021 How many times have you move d in the past 12 months? Zero (I did not move) 05/10/2021 Paying for Meds Answer Date Recorded Do you have trouble paying for medicines? No 05/10/2021 Paying Utility Bills Answer Date Record ed Do you have trouble paying your heating or elect ricity bill? No 05/10/2021 Transportation Answer Date Recorded Has the lack of transportati on kept you from medical appointments or from getting medications? No 05/10/2021 Unemployment Answer Date Recorded Are you currently unemployed or working on a part-time or temporary basis, and looking for work? Yes 05/10/2021 Digital Access Answer Date Recorded No 10/27/2022 No 10/27/2022 Reliable internet access at home? Not on file 10/27/2022 Device with a working camera? Not on file Sex and Gender Information Value Date Recorded Sex Assigned at Not on file Legal Sex Male 8:58 PM EDT Gender Identity Not on file Sexual Orientation Not on file Last Filed Vital Signs Vital Sign Reading Time Taken Comments Blood Pressure 122/68 05/10/2021 9:17 AM EST Pulse 71 05/10/2021 9:17 AM EST Temperature 36.9 C (98.4 F) 05/10/2021 9:17 AM EST Respiratory Rate - - Oxygen Saturation 97% 05/10/2021 9:17 AM EST Inhaled Oxygen Concentration - - Weight 148 kg (326 lb 3.2 oz) 05/10/2021 9:17 AM EST Height 192 cm (6' 3.59 ) 02/08/2021 11:30 AM EDT Body Mass Index 40.14 02/08/2021 11:30 AM EDT Plan of Treatment Health Maintenance Due Date Last Done Comments HEPATITIS C SCREENING 2010 HIV ONE-TIME SCREENING (18-65 YEARS) 2010 HEPATITIS A VACCINES (2 of 2 - 2-dose series) 08/28/2011 02/27/2011 DEPRESSION SCREENING 02/08/2022 02/08/2021 INFLUENZA VACCINE (#1) 2024 , 03/11/2022, 04/18/2021, Additional history exists COVID-19 VACCINE (2024- season) 2025 03/21/2023, 04/04/2022, 04/26/2021, Additional history exists Adult Td,Tdap Booster 02/08/2031 02/08/2021 , 02/27/2011, 10/24/2003, Additional history exists HIB VACCINES Completed 02/23/1994, 12/1993, 1992, Additional history exists MENINGOCOCCAL VACCINES (ACWY) Aged Out 01/13/2013, 12/27/2007 No longer eligibl e based on patient's age to complete this topic SMOKING STATUS SCREENING (Once After 26 Yrs) Completed 05/10/2021 MENINGOCOCCAL VACCINES (B) Aged Out N o longer eligible based on patient's age to complete this topic PNEUMOCOCCAL VACCINES (0-49 years) Aged Out No longer eligible based on patient's age to complete this topic Medical Devices Not on file Insurance [facility] [place] [address] [place] [address] ACO ACO [facility] Care Teams Financial Service Rep Relationship Specialty Start Date End Date Farzana Cody MD [email or web address] PCP - General Family Medicine 02/08/21 Lila Mcmillan MD [address] [place] [address], [address] [place] [address] [email or web address] Historical LMR Provider 03/19/17 Additional Source Comments The information contained in this document represents components of the legal health record. It is not the complete legal health record.[facility]
== END 2025-03-24 11:33 | disposition home or self-care (01) ==
LOC: HO.HMCFM 10:34
PROVIDERS: PCP Family Medicine; Visit Provider Family Medicine
DX: R74.8 Abnormal levels of other serum enzymes (principal); E78.1 Pure hyperglyceridemia; R79.89 Other specified abnormal findings of blood chemistry